=== PATIENT | female | born 1985 | race Caucasian/White ===

== ENCOUNTER 2021-07-09 06:48 | Inpatient (IN) ==
[2021-07-09] MEDS ORDERED: Isovue-370 500 ML BOTTLE IVP ONE (09:22)
[2021-07-09] MEDS ORDERED: Ipratropium 1 PUFF INHALER IH PRN (09:22)
[2021-07-09] MEDS ORDERED: *HR* HYDROcodone/Acet 5/325 mg TABLET PO PRN (09:22)
[2021-07-09] MEDS ORDERED: Ondansetron 4 MG/2 ML VIAL IVP PRN ×2 (09:22→19:32)
[2021-07-09] MEDS ORDERED: Naloxone 0.4 MG/ML INJ IVP PRN (09:22)
[2021-07-09] MEDS ORDERED: Perflutren Lipid Microsphere 1.3 ML in 0.9 % Sodium Chloride 8.7 ML IVP PRN (09:22)
[2021-07-09] MEDS ORDERED: Dexamethasone Sodium Phos/PF 10 MG/ML VIAL IVP SCH (09:30)
[2021-07-09] MEDS: Cholecalciferol (D-3) 1,000 UNIT (25MCG) TABLET PO SCH (11:01)
[2021-07-09] MEDS: Zinc Sulfate 220 MG CAPSULE PO SCH (11:01)
[2021-07-09 11:51] LABS: Hematocrit 36.5 % (35.3-44.9); Hemoglobin 11.9 g/dL (11.5-15.4); Mean Corpuscular Volume 84.3 fL (83.0-100.0); Red Blood Count 4.33 M/mcL (3.82-4.97); White Blood Count 5.5 K/mcL (4.3-11.1)
[2021-07-09 11:52] LABS: Mean Corpuscular HGB Conc 32.6 g/dL (31.6-35.5); Mean Corpuscular Hemoglobin 27.5 pg (28.0-33.3); Mean Platelet Volume 9.2 fL (9.4-12.4); Platelet Count 205 K/mcL (140-400); Red Cell Distribution Width 14.1 % (11.5-14.5)
[2021-07-09 11:53] LABS: Lymphocytes # 0.8 K/mcL (0.6-4.6); Monocytes # 0.1 K/mcL (0.0-1.3)
[2021-07-09 12:03] LABS: Alanine Aminotransferase 59 Units/L (7-52); Albumin 3.3 g/dL (3.5-5.7); Alkaline Phosphatase 86 Units/L (34-104); Aspartate Amino Transferase 46 Units/L (13-39); BUN/Creatinine Ratio 11 (6-26); Bilirubin,Direct 0.1 mg/dL (0.0-0.2); Bilirubin,Indirect 0.3 mg/dL (0.0-1.0); Bilirubin,Total 0.4 mg/dL (0.3-1.0); Blood Urea Nitrogen 8 mg/dL (6-20); C-Reactive Protein 190 mg/L (Less than 10); Carbon Dioxide 24 mEq/L (23-29); Chloride 103 mEq/L (98-107); Globulin 3.2 g/dL (2.4-3.5); Glucose 152 mg/dL (70-105); Magnesium 1.7 mg/dL (1.6-2.6); Osmolality,Calculated 283 (280-300); Phosphorous 3.5 mg/dL (2.7-4.5); Sodium 136 mEq/L (136-145); Total Protein 6.5 g/dL (6.4-8.9); Troponin I 0.06 ng/mL (< 0.04); eGFR For African Americans > 60 (> 60); eGFR For Non-African Americans > 60 (> 60)
[2021-07-09] MEDS ORDERED: Dexamethasone Sodium Phos/PF 10 MG/ML VIAL PO ONE (13:03)
[2021-07-09] MEDS ORDERED: Dexamethasone Sodium Phos/PF 10 MG/ML VIAL IVP ONE (13:30)
[2021-07-09] MEDS: Ascorbic Acid 500 MG TABLET PO SCH ×2 (13:33→19:39)
[2021-07-09] MEDS: *HR* Heparin 5,000 UNIT/ML VIAL SQ SCH ×2 (13:34→21:00)
[2021-07-09 13:53] LABS: Bacteria,Urine Few per hpf (None-Few); Bilirubin,Urine Negative (Negative); Blood,Urine Trace (Negative); Clarity,Urine Clear (Clear); Color,Urine Light-Yellow (Yellow); Glucose,Urine (UA) Normal (Normal); Ketones,Urine Negative (Negative); Leukocyte Esterase,Urine Negative (Negative); Mucus,Urine Few per lpf (None-Few); Nitrite,Urine Negative (Negative); Protein,Urine 100 mg/dL (Neg-Trace); RBC,Urine 0-3 per hpf (0-3); Specific Gravity,Urine 1.014 (1.010-1.025); Squamous Epithelial Cell,Urine Few per hpf (None-Few); Urobilinogen,Urine Normal (Normal); WBC,Urine 0-3 per hpf (0-3)
[2021-07-09] MEDS ORDERED: Remdesivir 200 MG in 0.9 % Sodium Chloride 100 ML IVPB ONE (14:10)
[2021-07-09 14:13] LABS: Heparin anti-factor XA UFH 0.1 IU/mL (0.30-0.70); Prothrombin Time 11.9 Seconds (9.4-12.1)
[2021-07-09 14:15] LABS: Activated Partial Thrombo Time 32.7 Seconds (26.0-36.0)
[2021-07-09 14:47] LABS: Neutrophils # 4.7 K/mcL (1.6-8.9)
[2021-07-09 14:48] LABS: Platelet Estimate Normal (Normal)
[2021-07-09] MEDS ORDERED: TOCILIZUMAB 810 MG in 0.9 % Sodium Chloride 95.5 ML IVPB ONE (15:00)
[2021-07-09] MEDS: Acetaminophen 325 MG TABLET PO PRN (19:57)
[2021-07-09] MEDS ORDERED: *HR* LORazepam 1 MG TABLET PO ONE (23:31)
[2021-07-10 04:43] LABS: Hematocrit 36.9 % (35.3-44.9); Hemoglobin 11.7 g/dL (11.5-15.4); Mean Corpuscular HGB Conc 31.7 g/dL (31.6-35.5); Mean Corpuscular Hemoglobin 27.3 pg (28.0-33.3); Mean Platelet Volume 9.4 fL (9.4-12.4); Monocytes # 0.2 K/mcL (0.0-1.3); Platelet Count 208 K/mcL (140-400); Red Blood Count 4.29 M/mcL (3.82-4.97); White Blood Count 2.8 K/mcL (4.3-11.1)
[2021-07-10 04:57] LABS: Albumin 3.1 g/dL (3.5-5.7); Bilirubin,Direct 0.1 mg/dL (0.0-0.2); Bilirubin,Indirect 0.2 mg/dL (0.0-1.0); Bilirubin,Total 0.3 mg/dL (0.3-1.0); Phosphorous 3.2 mg/dL (2.7-4.5); Total Protein 6.1 g/dL (6.4-8.9)
[2021-07-10 05:00] LABS: BUN/Creatinine Ratio 19 (6-26); Blood Urea Nitrogen 12 mg/dL (6-20); Calcium 7.9 mg/dL (8.6-10.3); Carbon Dioxide 26 mEq/L (23-29); Chloride 106 mEq/L (98-107); Glucose 127 mg/dL (70-105); Osmolality,Calculated 289 (280-300); Potassium 4.1 mEq/L (3.5-5.1); Sodium 139 mEq/L (136-145); eGFR For African Americans > 60 (> 60); eGFR For Non-African Americans > 60 (> 60)
[2021-07-10] MEDS ORDERED: *HR* LORazepam 2 MG/ML VIAL ONE (05:00)
[2021-07-10 05:01] LABS: Troponin I 0.08 ng/mL (< 0.04)
[2021-07-10] MEDS ORDERED: Dexmedetomidine HCl 400 MCG/100 ML MLS IVC ONE (05:03)
[2021-07-10] MEDS: Dexmedetomidine HCl 400 MCG/100 ML MLS IVC SCH ×6 (05:05→21:36)
[2021-07-10] MEDS ORDERED: *HR* Metoprolol 5 MG/5 ML VIAL IVP ONE ×2 (05:12→05:40)
[2021-07-10] MEDS: Prochlorperazine 10 MG/2 ML VIAL IVP PRN (05:25)
[2021-07-10 05:38] LABS: ABG Base Excess 1 mEq/L (-2 to 3); ABG HCO3 25 mEq/L (21-27); ABG Oxygen Saturation 69 % (95-98); ABG PCO2 37 mmHg (35-45); ABG PH 7.44 pH Units (7.32-7.45); ABG PO2 34 mmHg (85-104); ABG TCO2 27 mEq/L (20-26)
[2021-07-10] MEDS ORDERED: *HR* LORazepam 2 MG/ML VIAL IVP ONE (05:40)
[2021-07-10] MEDS ORDERED: *HR* Heparin 5,000 UNIT/ML VIAL IVP PRN (05:49)
[2021-07-10] MEDS ORDERED: *HR* Heparin 5,000 UNIT/ML VIAL IVP ONE (05:49)
[2021-07-10 05:59] LABS: Eosinophils # 0.1 K/mcL (0.0-0.6); Lymphocytes # 0.8 K/mcL (0.6-4.6); Neutrophils # 1.7 K/mcL (1.6-8.9)
[2021-07-10 06:00] LABS: Platelet Estimate Normal (Normal); Reactive Lymphocytes Present (Not Present)
[2021-07-10] MEDS: Heparin 25,000UNIT/250ML 1/2NS 25,000 UNIT/250 ML IV.SOLN IVC SCH (06:26)
[2021-07-10] MEDS ORDERED: Furosemide 20 MG/2 ML VIAL IVP ONE (11:02)
[2021-07-10] MEDS: Dexamethasone Sodium Phos/PF 10 MG/ML VIAL IVP SCH (11:16)
[2021-07-10] MEDS: Zinc Sulfate 220 MG CAPSULE PO SCH (11:17)
[2021-07-10] MEDS: Cholecalciferol (D-3) 1,000 UNIT (25MCG) TABLET PO SCH (11:17)
[2021-07-10] MEDS: Ascorbic Acid 500 MG TABLET PO SCH ×2 (11:17→19:47)
[2021-07-10] MEDS: Remdesivir 100 MG in 0.9 % Sodium Chloride 100 ML IVPB SCH (15:43)
[2021-07-10] MEDS: Ipratropium 1 PUFF INHALER IH SCH ×3 (16:10→23:03)
[2021-07-10] MEDS ORDERED: Chloraseptic Spray 177 ML BOTTLE MM PRN (18:06)
[2021-07-10] MEDS ORDERED: Saliva Stimulant 44.3ml BOTTLE PO PRN (18:06)
[2021-07-11] MEDS: Heparin 25,000UNIT/250ML 1/2NS 25,000 UNIT/250 ML IV.SOLN IVC SCH ×2 (00:17→20:31)
[2021-07-11] MEDS: Dexmedetomidine HCl 400 MCG/100 ML MLS IVC SCH ×8 (01:13→22:34)
[2021-07-11] MEDS: Ipratropium 1 PUFF INHALER IH SCH ×6 (03:29→23:36)
[2021-07-11 04:11] LABS: Basophils % 0.3 %; Hematocrit 39.2 % (35.3-44.9); Hemoglobin 12.6 g/dL (11.5-15.4); Lymphocytes # 1.1 K/mcL (0.6-4.6); Lymphocytes % 35.1 %; Mean Corpuscular HGB Conc 32.1 g/dL (31.6-35.5); Mean Corpuscular Hemoglobin 27.4 pg (28.0-33.3); Mean Corpuscular Volume 85.2 fL (83.0-100.0); Mean Platelet Volume 9.6 fL (9.4-12.4); Monocytes # 0.4 K/mcL (0.0-1.3); Monocytes % 11.8 %; Neutrophils # 1.6 K/mcL (1.6-8.9); Platelet Count 275 K/mcL (140-400); Red Cell Distribution Width 13.6 % (11.5-14.5); Segmented Neutrophils % 51.8 %; White Blood Count 3.1 K/mcL (4.3-11.1)
[2021-07-11 04:22] LABS: VBG Ionized Calcium 1.09 mmol/L (1.15-1.35)
[2021-07-11 04:27] LABS: Platelet Estimate Normal (Normal); Reactive Lymphocytes Present (Not Present)
[2021-07-11 04:29] LABS: Albumin 3.2 g/dL (3.5-5.7); Bilirubin,Direct 0.1 mg/dL (0.0-0.2); Bilirubin,Indirect 0.2 mg/dL (0.0-1.0); Bilirubin,Total 0.3 mg/dL (0.3-1.0); Globulin 3.1 g/dL (2.4-3.5); Total Protein 6.3 g/dL (6.4-8.9)
[2021-07-11 04:30] LABS: BUN/Creatinine Ratio 32 (6-26); Blood Urea Nitrogen 26 mg/dL (6-20); Carbon Dioxide 25 mEq/L (23-29); Chloride 104 mEq/L (98-107); Glucose 170 mg/dL (70-105); Magnesium 2.2 mg/dL (1.6-2.6); Osmolality,Calculated 295 (280-300); Phosphorous 4.6 mg/dL (2.7-4.5); Potassium 4.3 mEq/L (3.5-5.1); Sodium 138 mEq/L (136-145); eGFR For African Americans > 60 (> 60); eGFR For Non-African Americans > 60 (> 60)
[2021-07-11] MEDS ORDERED: Furosemide 20 MG/2 ML VIAL IVP ONE (07:06)
[2021-07-11] MEDS: Dexamethasone Sodium Phos/PF 10 MG/ML VIAL IVP SCH (08:11)
[2021-07-11] MEDS: Ascorbic Acid 500 MG TABLET PO SCH ×2 (08:11→20:31)
[2021-07-11] MEDS: Zinc Sulfate 220 MG CAPSULE PO SCH (08:11)
[2021-07-11] MEDS: Cholecalciferol (D-3) 1,000 UNIT (25MCG) TABLET PO SCH (08:11)
[2021-07-11] MEDS: Prochlorperazine 10 MG/2 ML VIAL IVP PRN (08:53)
[2021-07-11] MEDS: PARoxetine 20 MG TABLET PO SCH (12:13)
[2021-07-11] MEDS: Remdesivir 100 MG in 0.9 % Sodium Chloride 100 ML IVPB SCH (15:33)
[2021-07-12] MEDS: Dexmedetomidine HCl 400 MCG/100 ML MLS IVC SCH ×7 (02:11→21:18)
[2021-07-12] MEDS: Ipratropium 1 PUFF INHALER IH SCH ×5 (04:22→21:09)
[2021-07-12 04:26] LABS: Basophils % 0.3 %; Hematocrit 41.1 % (35.3-44.9); Hemoglobin 13.2 g/dL (11.5-15.4); Immature Granulocytes % 1.4 % (0-4); Lymphocytes # 1.2 K/mcL (0.6-4.6); Lymphocytes % 32.7 %; Mean Corpuscular HGB Conc 32.1 g/dL (31.6-35.5); Mean Corpuscular Hemoglobin 27.3 pg (28.0-33.3); Mean Corpuscular Volume 84.9 fL (83.0-100.0); Mean Platelet Volume 9.6 fL (9.4-12.4); Monocytes # 0.5 K/mcL (0.0-1.3); Monocytes % 13.3 %; Neutrophils # 1.9 K/mcL (1.6-8.9); Platelet Count 291 K/mcL (140-400); Red Blood Count 4.84 M/mcL (3.82-4.97); Red Cell Distribution Width 13.1 % (11.5-14.5); Segmented Neutrophils % 52.3 %; White Blood Count 3.6 K/mcL (4.3-11.1)
[2021-07-12 04:44] LABS: BUN/Creatinine Ratio 34 (6-26); Blood Urea Nitrogen 22 mg/dL (6-20); Carbon Dioxide 25 mEq/L (23-29); Chloride 102 mEq/L (98-107); Glucose 157 mg/dL (70-105); Osmolality,Calculated 289 (280-300); Potassium 4.3 mEq/L (3.5-5.1); Sodium 136 mEq/L (136-145); eGFR For African Americans > 60 (> 60); eGFR For Non-African Americans > 60 (> 60)
[2021-07-12 04:45] LABS: Albumin 3.4 g/dL (3.5-5.7); Albumin/Globulin Ratio 1.3 (1.1-2.2); Bilirubin,Direct 0.1 mg/dL (0.0-0.2); Bilirubin,Indirect 0.3 mg/dL (0.0-1.0); Bilirubin,Total 0.4 mg/dL (0.3-1.0); Globulin 2.7 g/dL (2.4-3.5); Total Protein 6.1 g/dL (6.4-8.9)
[2021-07-12] MEDS: Heparin 25,000UNIT/250ML 1/2NS 25,000 UNIT/250 ML IV.SOLN IVC SCH (08:16)
[2021-07-12] MEDS: Zinc Sulfate 220 MG CAPSULE PO SCH (08:21)
[2021-07-12] MEDS: Dexamethasone Sodium Phos/PF 10 MG/ML VIAL IVP SCH (08:21)
[2021-07-12] MEDS: Cholecalciferol (D-3) 1,000 UNIT (25MCG) TABLET PO SCH (08:21)
[2021-07-12] MEDS: Ascorbic Acid 500 MG TABLET PO SCH (08:21)
[2021-07-12] MEDS: PARoxetine 20 MG TABLET PO SCH (12:03)
[2021-07-12] MEDS: Remdesivir 100 MG in 0.9 % Sodium Chloride 100 ML IVPB SCH (15:42)
[2021-07-13] MEDS: Ipratropium 1 PUFF INHALER IH SCH ×7 (00:02→23:25)
[2021-07-13] MEDS: Heparin 25,000UNIT/250ML 1/2NS 25,000 UNIT/250 ML IV.SOLN IVC SCH ×3 (00:27→21:15)
[2021-07-13] MEDS: Dexmedetomidine HCl 400 MCG/100 ML MLS IVC SCH ×2 (01:08→05:08)
[2021-07-13 04:36] LABS: Basophils % 0.4 %; Hematocrit 41.9 % (35.3-44.9); Hemoglobin 13.9 g/dL (11.5-15.4); Lymphocytes # 1.4 K/mcL (0.6-4.6); Lymphocytes % 28.7 %; Mean Corpuscular HGB Conc 33.2 g/dL (31.6-35.5); Mean Corpuscular Hemoglobin 27.8 pg (28.0-33.3); Mean Corpuscular Volume 83.8 fL (83.0-100.0); Mean Platelet Volume 9.6 fL (9.4-12.4); Monocytes # 0.5 K/mcL (0.0-1.3); Neutrophils # 2.9 K/mcL (1.6-8.9); Platelet Count 303 K/mcL (140-400); Red Cell Distribution Width 12.5 % (11.5-14.5); Segmented Neutrophils % 58.9 %; White Blood Count 4.9 K/mcL (4.3-11.1)
[2021-07-13 04:46] LABS: Heparin anti-factor XA UFH 0.33 IU/mL (0.30-0.70)
[2021-07-13 04:53] LABS: Alanine Aminotransferase 43 Units/L (7-52); Albumin 3.3 g/dL (3.5-5.7); Albumin/Globulin Ratio 1.1 (1.1-2.2); Alkaline Phosphatase 66 Units/L (34-104); Aspartate Amino Transferase 33 Units/L (13-39); BUN/Creatinine Ratio 31 (6-26); Bilirubin,Direct 0.1 mg/dL (0.0-0.2); Bilirubin,Indirect 0.4 mg/dL (0.0-1.0); Bilirubin,Total 0.5 mg/dL (0.3-1.0); Blood Urea Nitrogen 19 mg/dL (6-20); C-Reactive Protein 26 mg/L (Less than 10); Calcium 8.4 mg/dL (8.6-10.3); Carbon Dioxide 26 mEq/L (23-29); Chloride 103 mEq/L (98-107); Globulin 2.9 g/dL (2.4-3.5); Glucose 140 mg/dL (70-105); Osmolality,Calculated 291 (280-300); Potassium 4.4 mEq/L (3.5-5.1); Sodium 138 mEq/L (136-145); Total Protein 6.2 g/dL (6.4-8.9); eGFR For African Americans > 60 (> 60); eGFR For Non-African Americans > 60 (> 60)
[2021-07-13] MEDS: Dexamethasone Sodium Phos/PF 10 MG/ML VIAL IVP SCH (07:37)
[2021-07-13] MEDS ORDERED: Albumin Human 5% 25.0 GM/500 ML IV.SOLN ONE (08:39)
[2021-07-13] MEDS: Albumin Human 5% 12.5 GM/250 ML IV.SOLN IVC SCH ×2 (09:00→10:11)
[2021-07-13] MEDS ORDERED: Perflutren Lipid Microsphere 1.3 ML in 0.9 % Sodium Chloride 8.7 ML IVP PRN (09:12)
[2021-07-13 10:55] LABS: VBG HCO3 26 mEq/L (21-27); VBG PCO2 42 mmHg (41-51); VBG PO2 64 mmHg (25-50)
[2021-07-13] MEDS: *HR* LORazepam 0.5 MG TABLET PO PRN (11:20)
[2021-07-13] MEDS: PARoxetine 20 MG TABLET PO SCH (11:20)
[2021-07-13] MEDS ORDERED: *HR* Metoprolol 5 MG/5 ML VIAL IVP ONE ×2 (11:26→15:09)
[2021-07-13] MEDS: DilTIAZem 50 MG in 0.9 % Sodium Chloride 40 ML IVC SCH ×2 (13:16→21:02)
[2021-07-13] MEDS ORDERED: Ondansetron 4 MG/2 ML VIAL ONE (13:51)
[2021-07-13] MEDS: Prochlorperazine 10 MG/2 ML VIAL IVP PRN ×2 (14:04→22:07)
[2021-07-13] MEDS ORDERED: *HR* Metoprolol 5 MG/5 ML VIAL IVP PRN (15:18)
[2021-07-13] MEDS: Remdesivir 100 MG in 0.9 % Sodium Chloride 100 ML IVPB SCH (15:35)
[2021-07-13 15:39] LABS: VBG Ionized Calcium 1.08 mmol/L (1.15-1.35)
[2021-07-13 16:20] LABS: BUN/Creatinine Ratio 32 (6-26); Blood Urea Nitrogen 21 mg/dL (6-20); Carbon Dioxide 24 mEq/L (23-29); Chloride 105 mEq/L (98-107); Glucose 163 mg/dL (70-105); Magnesium 1.9 mg/dL (1.6-2.6); Osmolality,Calculated 295 (280-300); Phosphorous 4.1 mg/dL (2.7-4.5); Potassium 4.2 mEq/L (3.5-5.1); Sodium 139 mEq/L (136-145); eGFR For African Americans > 60 (> 60); eGFR For Non-African Americans > 60 (> 60)
[2021-07-13] MEDS: Acetaminophen 325 MG TABLET PO PRN (20:49)
[2021-07-13] MEDS: *HR* Heparin 5,000 UNIT/ML VIAL IVP PRN (23:27)
[2021-07-14] MEDS ORDERED: Melatonin 3 MG TABLET PO ONE (00:14)
[2021-07-14] MEDS: *HR* LORazepam 0.5 MG TABLET PO PRN (00:26)
[2021-07-14] MEDS ORDERED: Ondansetron 4 MG/2 ML VIAL IVP ONE (02:23)
[2021-07-14] MEDS ORDERED: Ondansetron 4 MG/2 ML VIAL ONE (02:24)
[2021-07-14] MEDS: Ipratropium 1 PUFF INHALER IH SCH ×6 (03:41→22:54)
[2021-07-14] MEDS: Prochlorperazine 10 MG/2 ML VIAL IVP PRN ×3 (04:25→20:06)
[2021-07-14] MEDS: DilTIAZem 50 MG in 0.9 % Sodium Chloride 40 ML IVC SCH ×2 (04:40→15:54)
[2021-07-14 05:31] LABS: VBG HCO3 26 mEq/L (21-27); VBG Ionized Calcium 1.13 mmol/L (1.15-1.35); VBG PCO2 39 mmHg (41-51); VBG PH 7.43 pH Units (7.32-7.42); VBG PO2 65 mmHg (25-50)
[2021-07-14 05:38] LABS: Basophils # 0.1 K/mcL (0.0-0.2); Basophils % 0.7 %; Eosinophils % 0.2 %; Hematocrit 36.7 % (35.3-44.9); Immature Granulocytes % 5.4 % (0-4); Lymphocytes # 2.4 K/mcL (0.6-4.6); Lymphocytes % 28.4 %; Mean Corpuscular HGB Conc 32.7 g/dL (31.6-35.5); Mean Corpuscular Hemoglobin 27.3 pg (28.0-33.3); Mean Corpuscular Volume 83.4 fL (83.0-100.0); Mean Platelet Volume 9.5 fL (9.4-12.4); Monocytes # 0.7 K/mcL (0.0-1.3); Monocytes % 7.7 %; Neutrophils # 4.9 K/mcL (1.6-8.9); Platelet Count 343 K/mcL (140-400); Red Cell Distribution Width 13.1 % (11.5-14.5); Segmented Neutrophils % 57.6 %
[2021-07-14 05:53] LABS: White Blood Count 8.5 K/mcL (4.3-11.1)
[2021-07-14 05:57] LABS: Alanine Aminotransferase 39 Units/L (7-52); Albumin 3.5 g/dL (3.5-5.7); Albumin/Globulin Ratio 1.7 (1.1-2.2); Alkaline Phosphatase 53 Units/L (34-104); Aspartate Amino Transferase 29 Units/L (13-39); BUN/Creatinine Ratio 29 (6-26); Bilirubin,Direct 0.2 mg/dL (0.0-0.2); Bilirubin,Indirect 0.7 mg/dL (0.0-1.0); Bilirubin,Total 0.9 mg/dL (0.3-1.0); Blood Urea Nitrogen 20 mg/dL (6-20); Calcium 8.2 mg/dL (8.6-10.3); Carbon Dioxide 27 mEq/L (23-29); Chloride 105 mEq/L (98-107); Globulin 2.1 g/dL (2.4-3.5); Glucose 115 mg/dL (70-105); Magnesium 2.1 mg/dL (1.6-2.6); Osmolality,Calculated 294 (280-300); Phosphorous 2.7 mg/dL (2.7-4.5); Potassium 3.7 mEq/L (3.5-5.1); Sodium 140 mEq/L (136-145); Total Protein 5.6 g/dL (6.4-8.9); eGFR For African Americans > 60 (> 60); eGFR For Non-African Americans > 60 (> 60)
[2021-07-14 05:59] LABS: Large Platelets Present (Not Present); Platelet Estimate Normal (Normal)
[2021-07-14] MEDS: Dexamethasone Sodium Phos/PF 10 MG/ML VIAL IVP SCH (07:23)
[2021-07-14] MEDS: PARoxetine 20 MG TABLET PO SCH (11:37)
[2021-07-14] MEDS: *HR* Heparin 5,000 UNIT/ML VIAL IVP PRN (14:42)
[2021-07-14] MEDS: Acetaminophen 325 MG TABLET PO PRN (17:05)
[2021-07-14] MEDS: *HR* Enoxaparin 40 MG/0.4 ML SYRINGE SQ SCH (20:06)
[2021-07-14] MEDS ORDERED: Melatonin 3 MG TABLET PO SCH (21:00)
[2021-07-15] MEDS: DilTIAZem 50 MG in 0.9 % Sodium Chloride 40 ML IVC SCH (02:52)
[2021-07-15] MEDS: Ipratropium 1 PUFF INHALER IH SCH ×6 (03:48→23:40)
[2021-07-15 03:54] LABS: Hematocrit 37.3 % (35.3-44.9); Hemoglobin 12.1 g/dL (11.5-15.4); Mean Corpuscular HGB Conc 32.4 g/dL (31.6-35.5); Mean Corpuscular Hemoglobin 27.5 pg (28.0-33.3); Mean Corpuscular Volume 84.8 fL (83.0-100.0); Mean Platelet Volume 9.3 fL (9.4-12.4); Platelet Count 368 K/mcL (140-400); Red Cell Distribution Width 13.2 % (11.5-14.5); White Blood Count 12.1 K/mcL (4.3-11.1)
[2021-07-15 03:55] LABS: VBG HCO3 25 mEq/L (21-27); VBG PCO2 37 mmHg (41-51); VBG PH 7.44 pH Units (7.32-7.42); VBG PO2 131 mmHg (25-50)
[2021-07-15 04:18] LABS: Alanine Aminotransferase 35 Units/L (7-52); Albumin 3.6 g/dL (3.5-5.7); Albumin/Globulin Ratio 1.7 (1.1-2.2); Alkaline Phosphatase 51 Units/L (34-104); Aspartate Amino Transferase 23 Units/L (13-39); BUN/Creatinine Ratio 20 (6-26); Bilirubin,Direct 0.2 mg/dL (0.0-0.2); Bilirubin,Indirect 0.7 mg/dL (0.0-1.0); Bilirubin,Total 0.9 mg/dL (0.3-1.0); Blood Urea Nitrogen 14 mg/dL (6-20); Calcium 8.1 mg/dL (8.6-10.3); Carbon Dioxide 25 mEq/L (23-29); Chloride 103 mEq/L (98-107); Glucose 119 mg/dL (70-105); Magnesium 2.1 mg/dL (1.6-2.6); Osmolality,Calculated 284 (280-300); Phosphorous 2.7 mg/dL (2.7-4.5); Potassium 3.8 mEq/L (3.5-5.1); Sodium 136 mEq/L (136-145); Total Protein 5.7 g/dL (6.4-8.9); eGFR For African Americans > 60 (> 60); eGFR For Non-African Americans > 60 (> 60)
[2021-07-15 04:19] LABS: Globulin 2.1 g/dL (2.4-3.5)
[2021-07-15 04:21] LABS: Anisocytosis 1+ (Not Present); Lymphocytes # 1.9 K/mcL (0.6-4.6); Neutrophils # 9.7 K/mcL (1.6-8.9); Platelet Estimate Normal (Normal)
[2021-07-15] MEDS: *HR* Enoxaparin 40 MG/0.4 ML SYRINGE SQ SCH ×2 (08:38→20:26)
[2021-07-15] MEDS: Dexamethasone Sodium Phos/PF 10 MG/ML VIAL IVP SCH (08:38)
[2021-07-15] MEDS: PARoxetine 20 MG TABLET PO SCH (11:53)
[2021-07-15] MEDS ORDERED: Saliva Stimulant 44.3ml BOTTLE PO PRN (12:18)
[2021-07-15] MEDS ORDERED: *HR* HYDROcodone/Acet 5/325 mg TABLET PO PRN (12:18)
[2021-07-15] MEDS ORDERED: *HR* LORazepam 0.5 MG TABLET PO PRN (12:18)
[2021-07-15] MEDS ORDERED: Chloraseptic Spray 177 ML BOTTLE MM PRN (12:18)
[2021-07-15] MEDS ORDERED: *HR* Metoprolol 5 MG/5 ML VIAL IVP PRN (12:18)
[2021-07-15] MEDS ORDERED: Naloxone 0.4 MG/ML INJ IVP PRN (12:18)
[2021-07-15] MEDS ORDERED: Prochlorperazine 10 MG/2 ML VIAL IVP PRN (12:18)
[2021-07-15] MEDS ORDERED: Acetaminophen 325 MG TABLET PO PRN (12:18)
[2021-07-15] MEDS ORDERED: Melatonin 3 MG TABLET PO SCH (21:00)
[2021-07-16] MEDS: Ipratropium 1 PUFF INHALER IH SCH ×3 (03:56→12:02)
[2021-07-16 07:37] LABS: VBG Ionized Calcium 1.12 mmol/L (1.15-1.35)
[2021-07-16] MEDS: *HR* Enoxaparin 40 MG/0.4 ML SYRINGE SQ SCH (07:46)
[2021-07-16 07:52] LABS: Hemoglobin 13.1 g/dL (11.5-15.4); Mean Corpuscular HGB Conc 32.8 g/dL (31.6-35.5); Mean Corpuscular Hemoglobin 27.8 pg (28.0-33.3); Mean Corpuscular Volume 84.9 fL (83.0-100.0); Mean Platelet Volume 9.5 fL (9.4-12.4); Monocytes # 0.4 K/mcL (0.0-1.3); Platelet Count 375 K/mcL (140-400); Red Blood Count 4.71 M/mcL (3.82-4.97); Red Cell Distribution Width 13.4 % (11.5-14.5); White Blood Count 17.7 K/mcL (4.3-11.1)
[2021-07-16 08:13] LABS: Alanine Aminotransferase 42 Units/L (7-52); Albumin 3.7 g/dL (3.5-5.7); Albumin/Globulin Ratio 1.7 (1.1-2.2); Alkaline Phosphatase 55 Units/L (34-104); Aspartate Amino Transferase 27 Units/L (13-39); Bilirubin,Total 0.9 mg/dL (0.3-1.0); Blood Urea Nitrogen 18 mg/dL (6-20); Calcium 8.4 mg/dL (8.6-10.3); Carbon Dioxide 25 mEq/L (23-29); Chloride 104 mEq/L (98-107); Globulin 2.2 g/dL (2.4-3.5); Glucose 115 mg/dL (70-105); Magnesium 2.2 mg/dL (1.6-2.6); Osmolality,Calculated 289 (280-300); Phosphorous 3.7 mg/dL (2.7-4.5); Potassium 3.8 mEq/L (3.5-5.1); Sodium 138 mEq/L (136-145); Total Protein 5.9 g/dL (6.4-8.9)
[2021-07-16 08:22] LABS: Eosinophils # 0.2 K/mcL (0.0-0.6); Lymphocytes # 2.8 K/mcL (0.6-4.6); Neutrophils # 14.3 K/mcL (1.6-8.9); Platelet Estimate Normal (Normal)
[2021-07-16 08:49] LABS: BUN/Creatinine Ratio 21 (6-26); eGFR For African Americans > 60 (> 60); eGFR For Non-African Americans > 60 (> 60)
[2021-07-16] MEDS ORDERED: Dexamethasone Sodium Phos/PF 10 MG/ML VIAL IVP SCH ×2 (09:00)
[2021-07-16] MEDS ORDERED: PARoxetine 20 MG TABLET PO SCH (12:00)
[2021-07-16 12:09] VITALS: BP 132/86; PULSE 72; TEMP 97.8; O2SAT 88
== END 2021-07-16 15:12 | disposition home or self-care (01) | DRG 871 ==
LOC: ICNU → 2NENU 07-15 12:37
PROVIDERS: ADMIT Student in an Organized Health Care Education/Training Program; ATTEND Student in an Organized Health Care Education/Training Program